=== PATIENT | male | born 1950 | race Caucasian/White ===

== ENCOUNTER 2018-11-14 11:20 | Inpatient (IN) | payer MEDICARE, OTHER ==
[~2018-11-14] VITALS: Ht 188 cm; Wt 120.7 kg
[2018-11-14] MEDS ORDERED: ipratropium/albuterol 3ml nebule NEB ONE (11:40)
[2018-11-14] MEDS ORDERED: furosemide 10 MG/1 ML 10ml inj IV ONE (11:40)
[2018-11-14 11:57] LABS: RED CELL DISTRIBUTION WIDTH 18.5 % (11.5-14.5)
[2018-11-14 11:59] LABS: HEMOGLOBIN 9.5 g/dl (14.0-17.9); MEAN CORPUSCULAR HEMOGLOBIN 21.5 PG (27.0-31.0); MEAN CORPUSCULAR HGB CONC 29.7 g/dL (33.0-36.5); MEAN CORPUSCULAR VOLUME 72.4 FL (78-98); MEAN PLATELET VOLUME 6.8 FL (7.4-10.4); PLATELET COUNT 166 X10'3 (140-440); RED BLOOD COUNT 4.42 X10'6 (4.70-6.10)
[2018-11-14 12:12] LABS: ALANINE AMINOTRANSFERASE 24 U/L (12-78); ALBUMIN 3.6 G/DL (3.4-5.0); ALBUMIN/GLOBULIN RATIO 1.2 (1.1-1.5); ALKALINE PHOSPHATASE 98 IU/L (46-116); ANION GAP 3 (8-16); ASPARTATE AMINO TRANSFERASE 24 U/L (10-37); BILIRUBIN,TOTAL 0.6 MG/DL (0.1-1.0); BLOOD UREA NITROGEN 22 MG/DL (7-18); BUN/CREATININE RATIO 11.1 (5.4-32.0); CALCIUM 8.9 MG/DL (8.5-10.1); CHLORIDE 99 MMOL/L (99-107); CREATININE 1.98 MG/DL (0.60-1.10); GLUCOSE 117 MG/DL (70-104); POTASSIUM 3.9 MMOL/L (3.5-5.1); SODIUM 135 MMOL/L (135-145); TOTAL CARBON DIOXIDE 32.9 MMOL/L (24-32); TOTAL PROTEIN 6.6 G/DL (6.4-8.2); eGFR 34 ML/MIN
[2018-11-14 12:28] LABS: WHITE BLOOD COUNT 66.2 X10'3 (4.5-11.0)
[2018-11-14 13:08] LABS: PLATELET ESTIMATE NORMAL; TOTAL CELLS COUNTED 100
[2018-11-14 13:09] LABS: ANISOCYTOSIS 2+; ELLIPTOCYTES FEW; HYPOCHROMASIA 1+; MICROCYTOSIS 1+; POLYCHROMASIA FEW
[2018-11-14] MEDS ORDERED: ALBU18HF2 INH (13:25)
[2018-11-14] MEDS ORDERED: HYDROcodone/acetaminophen 10/325mg tab PO ONE (13:25)
[2018-11-14] MEDS ORDERED: BUDE10.2 INH (13:26)
[2018-11-14] MEDS ORDERED: APIX2.5T PO (13:26)
[2018-11-14] MEDS ORDERED: DOCU100C41 PO (13:27)
[2018-11-14] MEDS ORDERED: CARV3.122 PO (13:27)
[2018-11-14] MEDS ORDERED: FERR324T PO (13:28)
[2018-11-14] MEDS ORDERED: FLUT16SP10 NAS (13:30)
[2018-11-14] MEDS ORDERED: FURO-149 PO (13:31)
[2018-11-14] MEDS ORDERED: GABA-532 PO (13:32)
[2018-11-14] MEDS ORDERED: IPRA30SP (13:32)
[2018-11-14] MEDS ORDERED: LACT1CAP65 PO (13:33)
[2018-11-14] MEDS ORDERED: LIDO35.4 TOP (13:35)
[2018-11-14] MEDS ORDERED: LISI-604 PO (13:36)
[2018-11-14] MEDS ORDERED: OMEP40CA37 PO (13:37)
[2018-11-14] MEDS ORDERED: POTA10TA21 PO (13:37)
[2018-11-14] MEDS ORDERED: QUET200T PO (13:38)
[2018-11-14] MEDS ORDERED: SODI56GE9 PO (13:40)
[2018-11-14 13:47] LABS: SMUDGE CELLS 2+
[2018-11-14] MEDS ORDERED: potassium CL 10mEq/100ml bag 100 ML IV PRN (14:25)
[2018-11-14] MEDS ORDERED: magnesium 2GM in 50ml NS 50 ML IV PRN (14:25)
[2018-11-14] MEDS ORDERED: potassium Cl 40MEQ/NS 500ml 500 ML IV PRN (14:25)
[2018-11-14] MEDS ORDERED: magnesium 4gm in 100ml NS 100 ML IV PRN (14:25)
[2018-11-14] MEDS ORDERED: acetaminophen 325mg tablet PO PRN (14:25)
[2018-11-14] MEDS ORDERED: magnesium Cl slow-release 64mg tablet PO PRN (14:25)
[2018-11-14] MEDS ORDERED: potassium Cl 20 mEq SR tablet PO PRN (14:25)
--- NOTE | 2018-11-14 15:35 | NUR ---
RELIEVING RN FOR BREAK, PT IS UP AT BEDSIDE TO USE COMMODE
[2018-11-14] MEDS ORDERED: docusate sod 100mg capsule PO PRN (15:45)
[2018-11-14] MEDS ORDERED: ipratropium 0.03% 30ML nasal spray NS PRN (15:45)
[2018-11-14 16:38] VITALS: BP 104/57
[2018-11-14] MEDS ORDERED: albuterol 2.5 MG/3 ML nebule NEB PRN (16:40)
[2018-11-14] MEDS: lisinopril 5mg tablet PO SCH (16:54)
--- NOTE | 2018-11-14 18:23 | NUR ---
Problems reprioritized. Patient report given, questions answered & plan of care reviewed with Maricarmen GOMEZ.
--- NOTE | 2018-11-14 18:30 | NUR ---
Patient in room [facility]. I have received report from PATRICIA Mckeon and had the opportunity to ask questions and assume patient care. Addendum: 11/15/18 at 0102 by Jill Cobb RN Amended: Links added.
[2018-11-14 18:45] VITALS: BP 111/64
[2018-11-14 19:15] VITALS: BP 99/61
[2018-11-14] MEDS ORDERED: HYDROcodone/acetaminophen 5mg/325mg tablet PO PRN (19:50)
[2018-11-14] MEDS ORDERED: ferrous gluconate 324mg tablet PO SCH (20:00)
[2018-11-14] MEDS ORDERED: non-formulary drug (Budesonide/Formoterol Fumarate (Symbicort 160-4.5 Mcg Inhaler) 2 PUFFS INH SCH (20:00)
[2018-11-14] MEDS: carVEDilol 3.125mg tablet PO SCH (20:00)
[2018-11-14 20:07] LABS: POTASSIUM 3.8 MMOL/L (3.5-5.1)
[2018-11-14] MEDS: apixaban 2.5mg tablet PO SCH (20:30)
[2018-11-14 20:33] VITALS: BP 98/50
[2018-11-14] MEDS: budesonide 0.5mg/2ml UD nebule IH SCH (20:49)
[2018-11-14] MEDS: albuterol 2.5 MG/3 ML nebule NEB SCH (20:50)
[2018-11-14] MEDS: gabapentin 300mg capsule PO SCH (21:34)
[2018-11-14] MEDS: quetiapine 100mg tablet PO SCH (21:34)
[2018-11-15] VITALS (20 sets, daily range): BP systolic 85–129; BP diastolic 42–104
[2018-11-15] MEDS: HYDROcodone/acetaminophen 5mg/325mg tablet PO PRN ×3 (03:40→19:38)
[2018-11-15 05:02] LABS: ALBUMIN 3.4 G/DL (3.4-5.0); ANION GAP 0 (8-16); BLOOD UREA NITROGEN 23 MG/DL (7-18); BUN/CREATININE RATIO 12.2 (5.4-32.0); CALCIUM 8.6 MG/DL (8.5-10.1); CHLORIDE 99 MMOL/L (99-107); CREATININE 1.89 MG/DL (0.60-1.10); GLUCOSE 89 MG/DL (70-104); POTASSIUM 3.5 MMOL/L (3.5-5.1); SODIUM 134 MMOL/L (135-145); TOTAL CARBON DIOXIDE 34.6 MMOL/L (24-32); eGFR 36 ML/MIN
[2018-11-15 05:12] LABS: HEMOGLOBIN 8.8 g/dl (14.0-17.9); MEAN CORPUSCULAR HEMOGLOBIN 21.5 PG (27.0-31.0)
[2018-11-15 05:14] LABS: MEAN CORPUSCULAR HGB CONC 29.4 g/dL (33.0-36.5); MEAN PLATELET VOLUME 7.3 FL (7.4-10.4); PLATELET COUNT 133 X10'3 (140-440); RED BLOOD COUNT 4.11 X10'6 (4.70-6.10); RED CELL DISTRIBUTION WIDTH 18.7 % (11.5-14.5)
[2018-11-15 05:18] LABS: WHITE BLOOD COUNT 54.4 X10'3 (4.5-11.0)
[2018-11-15 05:50] LABS: TOTAL CELLS COUNTED 100
[2018-11-15 05:51] LABS: ANISOCYTOSIS 2+; PLATELET ESTIMATE DECREASED; POLYCHROMASIA 1+
[2018-11-15 05:52] LABS: ELLIPTOCYTES FEW; HYPOCHROMASIA 1+; MICROCYTOSIS 1+; SMUDGE CELLS 3+; STOMATOCYTES 1+
--- NOTE | 2018-11-15 06:30 | NUR ---
Problems reprioritized. Patient report given, questions answered & plan of care reviewed with PATRICIA CELIS. Addendum: 11/15/18 at 0650 by Jill Cobb RN Amended: Links added.
--- NOTE | 2018-11-15 06:30 | NUR ---
Patient in room Surgical 352-A. I have received report from PATRICIA Hernadez and had the opportunity to ask questions and assume patient care.
[2018-11-15] MEDS: K and/or MAG REPLACEMENT MC SCH (08:00)
[2018-11-15] MEDS ORDERED: POTASSIUM CITRATE 10 MEQ PO SCH ×2 (08:00)
[2018-11-15] MEDS: lisinopril 5mg tablet PO SCH (08:00)
[2018-11-15] MEDS: carVEDilol 3.125mg tablet PO SCH ×2 (08:00→19:35)
[2018-11-15] MEDS: apixaban 2.5mg tablet PO SCH ×2 (08:22→19:36)
[2018-11-15] MEDS: ferrous gluconate 324mg tablet PO SCH ×2 (08:23→19:36)
[2018-11-15] MEDS: budesonide 0.5mg/2ml UD nebule IH SCH ×2 (09:00→19:11)
--- NOTE | 2018-11-15 10:30 | NUR ---
Per Dr. Kim, patient's K needs to be above 4.0. Orders received to replace pt per protocol if K less than 4.0. Pt's potassium 3.5 this am. 20 MeQ given per MD orders.
[2018-11-15] MEDS: potassium Cl 20 mEq SR tablet PO PRN ×3 (10:44→19:36)
--- NOTE | 2018-11-15 11:10 | NUR ---
Patient report given to PATRICIA Lopez in PCU S. Pt stable for transfer to PCU unit.
[2018-11-15] MEDS: albuterol 2.5 MG/3 ML nebule NEB SCH ×3 (11:21→19:11)
--- NOTE | 2018-11-15 12:00 | NUR ---
Patient in room PCU 3013. I have received report from Russell GOMEZ and had the opportunity to ask questions and assume patient care.
[2018-11-15] MEDS: DOBUTamine-DoBUTrex 500mg/D5W 250 ML IV SCH (12:10)
[2018-11-15] MEDS ORDERED: albuterol 2.5 MG/3 ML nebule NEB SCH (15:00)
--- NOTE | 2018-11-15 18:20 | NUR ---
Problems reprioritized. Patient report given, questions answered & plan of care reviewed with Monique GOMEZ.
[2018-11-15] MEDS: ondansetron/PF 4mg/2ml inj IV PRN (19:36)
[2018-11-15] MEDS: quetiapine 100mg tablet PO SCH (21:18)
[2018-11-15] MEDS: gabapentin 300mg capsule PO SCH (21:18)
[2018-11-16] VITALS (16 sets, daily range): BP systolic 75–119; BP diastolic 46–79
[2018-11-16] MEDS: ondansetron/PF 4mg/2ml inj IV PRN ×3 (04:24→18:23)
[2018-11-16] MEDS: HYDROcodone/acetaminophen 5mg/325mg tablet PO PRN ×4 (04:25→21:07)
[2018-11-16 05:47] LABS: ALBUMIN 3.2 G/DL (3.4-5.0); ANION GAP 2 (8-16); BLOOD UREA NITROGEN 17 MG/DL (7-18); BUN/CREATININE RATIO 11.6 (5.4-32.0); CALCIUM 8.3 MG/DL (8.5-10.1); CHLORIDE 103 MMOL/L (99-107); CREATININE 1.46 MG/DL (0.60-1.10); GLUCOSE 82 MG/DL (70-104); POTASSIUM 3.9 MMOL/L (3.5-5.1); SODIUM 137 MMOL/L (135-145); TOTAL CARBON DIOXIDE 31.7 MMOL/L (24-32); eGFR 48 ML/MIN
[2018-11-16 05:49] LABS: BASOPHILS # (AUTO) 0.1 X10'3 (0-0.2); EOSINOPHILS # (AUTO) 0.2 X10'3 (0-0.9); HEMOGLOBIN 8.1 g/dl (14.0-17.9); LYMPHOCYTES % (AUTO) 86.8 % (21-51)
[2018-11-16 05:51] LABS: BASOPHILS % (AUTO) 0.2 % (0-1); EOSINOPHILS % (AUTO) 0.5 % (0-6); HEMATOCRIT 27.8 % (42.0-52.0); LYMPHOCYTES # (AUTO) 32.9 X10'3 (1.1-4.8); MEAN CORPUSCULAR HEMOGLOBIN 21.3 PG (27.0-31.0); MEAN CORPUSCULAR HGB CONC 29.1 g/dL (33.0-36.5); MEAN CORPUSCULAR VOLUME 73.4 FL (78-98); MEAN PLATELET VOLUME 7.4 FL (7.4-10.4); MONOCYTES # (AUTO) 0.6 X10'3 (0-0.9); MONOCYTES % (AUTO) 1.5 % (2-12); NEUTROPHILS # (AUTO) 4.2 X10'3 (1.8-7.7); PLATELET COUNT 110 X10'3 (140-440); RED BLOOD COUNT 3.78 X10'6 (4.70-6.10)
[2018-11-16 05:54] LABS: WHITE BLOOD COUNT 37.9 X10'3 (4.5-11.0)
--- NOTE | 2018-11-16 06:12 | NUR ---
Patient in room PCU 3013. I have received report from Den GOMEZ and had the opportunity to ask questions and assume patient care.
[2018-11-16 06:41] LABS: SMUDGE CELLS 3+; TOTAL CELLS COUNTED 100
[2018-11-16 06:42] LABS: ANISOCYTOSIS 2+; ELLIPTOCYTES 1+; HYPOCHROMASIA 1+; MICROCYTOSIS 1+; PLATELET ESTIMATE DECREASED; POLYCHROMASIA 1+
[2018-11-16] MEDS: budesonide 0.5mg/2ml UD nebule IH SCH ×2 (07:10→18:56)
[2018-11-16] MEDS: albuterol 2.5 MG/3 ML nebule NEB SCH ×4 (07:10→18:56)
[2018-11-16] MEDS: K and/or MAG REPLACEMENT MC SCH (08:00)
[2018-11-16] MEDS: carVEDilol 3.125mg tablet PO SCH ×2 (08:00→21:06)
--- NOTE | 2018-11-16 08:45 | NUR ---
Per Dr. Winn orders to keep potassium at 4.0 or higher. Pt's morning Potassium 3.9, beginning replacement.
--- NOTE | 2018-11-16 08:45 | NUR ---
Per Dr. Leavitt orders. Hold morning Coreg 3.125mg, and give morning lisinopril 5mg
[2018-11-16] MEDS: ferrous gluconate 324mg tablet PO SCH ×2 (08:48→21:06)
[2018-11-16] MEDS: lisinopril 5mg tablet PO SCH (08:48)
[2018-11-16] MEDS: apixaban 2.5mg tablet PO SCH ×2 (08:48→21:07)
[2018-11-16] MEDS: potassium Cl 20 mEq SR tablet PO PRN (08:49)
--- NOTE | 2018-11-16 09:06 | NUR ---
PAGER ID: [phone] MESSAGE: RE: Nathan Hernandez, Room: [facility]. At 0900 Pt had 12 beat run of v-tach. -[facility] #[id number] Dr. Leavitt paged concerning Pts 12 beat run of V-tach
--- NOTE | 2018-11-16 09:30 | NUR ---
per Dr. Winn orders; -Lasix 20mg IV BID -Lasix 20mg IV once now -Potassium 20meq BID PO -Amiodarone 150mg IV Once -Mag 2Gm IV once. Orders entered.
[2018-11-16] MEDS: DOBUTamine-DoBUTrex 500mg/D5W 250 ML IV SCH (09:53)
[2018-11-16] MEDS ORDERED: furosemide 20 MG/2 ML vial IV ONE (10:35)
[2018-11-16] MEDS ORDERED: amiodarone 50MG/ML inj IV ONE (11:10)
[2018-11-16] MEDS ORDERED: amiodarone 150mg/dext, iso-os 100 ML IV ONE (11:40)
[2018-11-16] MEDS ORDERED: magnesium 2GM in 50ml NS 50 ML IV ONE (11:45)
--- NOTE | 2018-11-16 12:30 | NUR ---
Per Dr. Winn orders, keep magnesium above 2.0. Mag 2GM IV administered
[2018-11-16] MEDS: fluticasone nasal spray 16GM bottle NS PRN (13:14)
[2018-11-16] MEDS: potassium Cl 20 mEq SR tablet PO SCH (17:24)
--- NOTE | 2018-11-16 18:00 | NUR ---
Problems reprioritized. Patient report given, questions answered & plan of care reviewed with Den GOMEZ.
[2018-11-16] MEDS ORDERED: furosemide 20 MG/2 ML vial IV SCH (20:00)
[2018-11-16] MEDS: gabapentin 300mg capsule PO SCH (21:05)
[2018-11-16] MEDS: famotidine 20mg tablet PO SCH (21:05)
[2018-11-16] MEDS: quetiapine 100mg tablet PO SCH (21:06)
[2018-11-16] MEDS ORDERED: potassium CL 10mEq/100ml bag 100 ML IV PRN (22:30)
[2018-11-16] MEDS ORDERED: magnesium 4gm in 100ml NS 100 ML IV PRN (22:30)
[2018-11-16 22:35] LABS: BASOPHILS % (AUTO) 0 % (0-1); EOSINOPHILS # (AUTO) 0.3 X10'3 (0-0.9); EOSINOPHILS % (AUTO) 0.5 % (0-6); HEMATOCRIT 31.3 % (42.0-52.0); LYMPHOCYTES # (AUTO) 48.9 X10'3 (1.1-4.8); LYMPHOCYTES % (AUTO) 85.7 % (21-51); MEAN CORPUSCULAR HEMOGLOBIN 21.1 PG (27.0-31.0); MEAN CORPUSCULAR HGB CONC 28.7 g/dL (33.0-36.5); MEAN CORPUSCULAR VOLUME 73.5 FL (78-98); MONOCYTES # (AUTO) 1.1 X10'3 (0-0.9); NEUTROPHILS # (AUTO) 6.7 X10'3 (1.8-7.7); NEUTROPHILS % (AUTO) 11.8 % (42-75); PLATELET COUNT 141 X10'3 (140-440); RED BLOOD COUNT 4.26 X10'6 (4.70-6.10); RED CELL DISTRIBUTION WIDTH 19.1 % (11.5-14.5)
[2018-11-16 22:38] LABS: WHITE BLOOD COUNT 57.1 X10'3 (4.5-11.0)
[2018-11-16 22:49] LABS: ALBUMIN 3.4 G/DL (3.4-5.0); ANION GAP 0 (8-16); BLOOD UREA NITROGEN 18 MG/DL (7-18); BUN/CREATININE RATIO 10.5 (5.4-32.0); CALCIUM 8.6 MG/DL (8.5-10.1); CHLORIDE 97 MMOL/L (99-107); CREATININE 1.71 MG/DL (0.60-1.10); GLUCOSE 114 MG/DL (70-104); PHOSPHORUS 3.7 MG/DL (2.3-4.5); POTASSIUM 4.7 MMOL/L (3.5-5.1); SODIUM 131 MMOL/L (135-145); TOTAL CARBON DIOXIDE 33.9 MMOL/L (24-32); TROPONIN I < 0.04 NG/ML (0.0-0.05); eGFR 40 ML/MIN
[2018-11-16 22:55] LABS: TOTAL CELLS COUNTED 100
[2018-11-16 22:56] LABS: ANISOCYTOSIS 2+; ELLIPTOCYTES FEW; HYPOCHROMASIA 1+; MICROCYTOSIS 1+; PLATELET ESTIMATE NORMAL; POLYCHROMASIA 1+; SMUDGE CELLS 4+; STOMATOCYTES 1+
[2018-11-16 23:21] LABS: MAGNESIUM 2.5 MG/DL (1.5-2.4)
[2018-11-17] VITALS (15 sets, daily range): BP systolic 90–146; BP diastolic 38–89
[2018-11-17] MEDS: DOBUTamine-DoBUTrex 500mg/D5W 250 ML IV SCH ×2 (03:01→10:35)
[2018-11-17] MEDS: HYDROcodone/acetaminophen 5mg/325mg tablet PO PRN ×4 (03:02→20:22)
[2018-11-17 06:05] LABS: HEMOGLOBIN 8.9 g/dl (14.0-17.9); MEAN CORPUSCULAR VOLUME 74.1 FL (78-98); PLATELET COUNT 133 X10'3 (140-440)
--- NOTE | 2018-11-17 06:07 | NUR ---
Patient in room PCU 3010. I have received report from Den GOMEZ and had the opportunity to ask questions and assume patient care.
[2018-11-17 06:09] LABS: BASOPHILS % (AUTO) 0.1 % (0-1); EOSINOPHILS # (AUTO) 0.3 X10'3 (0-0.9); EOSINOPHILS % (AUTO) 0.5 % (0-6); HEMATOCRIT 30.7 % (42.0-52.0); LYMPHOCYTES # (AUTO) 48.7 X10'3 (1.1-4.8); LYMPHOCYTES % (AUTO) 87.3 % (21-51); MEAN CORPUSCULAR HEMOGLOBIN 21.5 PG (27.0-31.0); MEAN PLATELET VOLUME 7.5 FL (7.4-10.4); MONOCYTES # (AUTO) 0.9 X10'3 (0-0.9); MONOCYTES % (AUTO) 1.7 % (2-12); NEUTROPHILS # (AUTO) 5.8 X10'3 (1.8-7.7); NEUTROPHILS % (AUTO) 10.4 % (42-75); RED BLOOD COUNT 4.15 X10'6 (4.70-6.10); RED CELL DISTRIBUTION WIDTH 18.7 % (11.5-14.5)
[2018-11-17 06:13] LABS: ALBUMIN 3.3 G/DL (3.4-5.0); ANION GAP 1 (8-16); BLOOD UREA NITROGEN 18 MG/DL (7-18); BUN/CREATININE RATIO 10.1 (5.4-32.0); CALCIUM 8.9 MG/DL (8.5-10.1); CHLORIDE 98 MMOL/L (99-107); CREATININE 1.79 MG/DL (0.60-1.10); GLUCOSE 84 MG/DL (70-104); MAGNESIUM 2.4 MG/DL (1.5-2.4); POTASSIUM 4.9 MMOL/L (3.5-5.1); SODIUM 133 MMOL/L (135-145); TOTAL CARBON DIOXIDE 33.7 MMOL/L (24-32); eGFR 38 ML/MIN
[2018-11-17 06:15] LABS: WHITE BLOOD COUNT 55.8 X10'3 (4.5-11.0)
[2018-11-17 07:18] LABS: ANISOCYTOSIS 2+; HYPOCHROMASIA 1+; MICROCYTOSIS 1+; PLATELET ESTIMATE DECREASED; POLYCHROMASIA 1+; STOMATOCYTES 1+; TOTAL CELLS COUNTED 100
[2018-11-17 07:19] LABS: SMUDGE CELLS 4+
[2018-11-17] MEDS: budesonide 0.5mg/2ml UD nebule IH SCH ×2 (07:30→19:29)
[2018-11-17] MEDS: albuterol 2.5 MG/3 ML nebule NEB SCH ×4 (07:30→19:29)
[2018-11-17] MEDS: lisinopril 5mg tablet PO SCH (08:00)
[2018-11-17] MEDS: K and/or MAG REPLACEMENT MC SCH (08:00)
[2018-11-17] MEDS ORDERED: amiodarone 200mg tablet PO ONE (09:05)
--- NOTE | 2018-11-17 09:15 | NUR ---
Per Dr. Lara orders; hold morning dose of lisinopril 5mg
[2018-11-17] MEDS: potassium Cl 20 mEq SR tablet PO SCH ×2 (09:18→17:25)
[2018-11-17] MEDS: apixaban 2.5mg tablet PO SCH ×2 (09:18→20:22)
[2018-11-17] MEDS: carVEDilol 3.125mg tablet PO SCH ×2 (09:18→20:22)
[2018-11-17 10:31] LABS: ALANINE AMINOTRANSFERASE 20 U/L (12-78); ALBUMIN 3.5 G/DL (3.4-5.0); ALBUMIN/GLOBULIN RATIO 1.2 (1.1-1.5); ALKALINE PHOSPHATASE 84 IU/L (46-116); ASPARTATE AMINO TRANSFERASE 18 U/L (10-37); BILIRUBIN,DIRECT 0.1 MG/DL (0-0.3); BILIRUBIN,TOTAL 0.5 MG/DL (0.1-1.0); TOTAL PROTEIN 6.4 G/DL (6.4-8.2)
[2018-11-17] MEDS: ferrous gluconate 324mg tablet PO SCH ×2 (10:34→20:22)
[2018-11-17] MEDS ORDERED: LIDOcaine 2% 10ml TOPICAL JELLY (Urojet) MM ONE (11:35)
--- NOTE | 2018-11-17 12:17 | NUR ---
Size 16 polish pruitt catheter placed in Pt. Pt tolerated well, 10CC of water filled in balloon tip. 350ml of urine out with initial placement.
[2018-11-17] MEDS: furosemide inj 100 MG in normal saline 100ml IV soln 90 ML IV SCH ×2 (12:31→23:54)
--- NOTE | 2018-11-17 13:09 | NUR ---
PAGER ID: [phone] MESSAGE: RE; Nathan Hernandez, Room: 3010. Pt's last three BP's have been 94/50, 85/58 and 94/50. Pt is asymptomatic. Increase Dobutamine to 5mcg? -John [facility] #[id number] -Dr. Lara paged concerning Pts BP's
--- NOTE | 2018-11-17 15:00 | NUR ---
Per Dr. Lara's orders; hold all night BP meds for Pt
[2018-11-17] MEDS: ondansetron/PF 4mg/2ml inj IV PRN (16:16)
--- NOTE | 2018-11-17 18:00 | NUR ---
Patient in room PCU 3010. I have received report from John GOMEZ and had the opportunity to ask questions and assume patient care.
--- NOTE | 2018-11-17 18:00 | NUR ---
Problems reprioritized. Patient report given, questions answered & plan of care reviewed with Den GOMEZ.
[2018-11-17] MEDS: gabapentin 300mg capsule PO SCH (20:21)
[2018-11-17] MEDS: amiodarone 200mg tablet PO SCH (20:21)
[2018-11-17] MEDS: famotidine 20mg tablet PO SCH (20:22)
[2018-11-17] MEDS: quetiapine 100mg tablet PO SCH (20:22)
[2018-11-18] VITALS (13 sets, daily range): BP systolic 87–119; BP diastolic 45–89
[2018-11-18] MEDS: HYDROcodone/acetaminophen 5mg/325mg tablet PO PRN ×4 (02:30→19:06)
[2018-11-18 05:31] LABS: BASOPHILS % (AUTO) 0.1 % (0-1); EOSINOPHILS # (AUTO) 0.3 X10'3 (0-0.9); EOSINOPHILS % (AUTO) 0.5 % (0-6); HEMATOCRIT 31.4 % (42.0-52.0); HEMOGLOBIN 9.2 g/dl (14.0-17.9); LYMPHOCYTES # (AUTO) 51.8 X10'3 (1.1-4.8); MEAN CORPUSCULAR HEMOGLOBIN 21.8 PG (27.0-31.0); MEAN CORPUSCULAR HGB CONC 29.3 g/dL (33.0-36.5); MEAN CORPUSCULAR VOLUME 74.3 FL (78-98); MEAN PLATELET VOLUME 7.4 FL (7.4-10.4); MONOCYTES # (AUTO) 0.9 X10'3 (0-0.9); MONOCYTES % (AUTO) 1.6 % (2-12); NEUTROPHILS # (AUTO) 4.5 X10'3 (1.8-7.7); NEUTROPHILS % (AUTO) 7.8 % (42-75); PLATELET COUNT 122 X10'3 (140-440); RED BLOOD COUNT 4.23 X10'6 (4.70-6.10); RED CELL DISTRIBUTION WIDTH 18.6 % (11.5-14.5)
[2018-11-18 05:34] LABS: WHITE BLOOD COUNT 57.5 X10'3 (4.5-11.0)
[2018-11-18 05:44] LABS: ALBUMIN 3.4 G/DL (3.4-5.0); ANION GAP 4 (8-16); BLOOD UREA NITROGEN 19 MG/DL (7-18); BUN/CREATININE RATIO 11.7 (5.4-32.0); CALCIUM 8.1 MG/DL (8.5-10.1); CHLORIDE 96 MMOL/L (99-107); CREATININE 1.63 MG/DL (0.60-1.10); GLUCOSE 86 MG/DL (70-104); MAGNESIUM 1.9 MG/DL (1.5-2.4); POTASSIUM 4.1 MMOL/L (3.5-5.1); SODIUM 134 MMOL/L (135-145); TOTAL CARBON DIOXIDE 34.1 MMOL/L (24-32); eGFR 42 ML/MIN
[2018-11-18 05:57] LABS: ANISOCYTOSIS 2+; HYPOCHROMASIA 1+; MICROCYTOSIS 1+; PLATELET ESTIMATE DECREASED; POLYCHROMASIA 1+; SMUDGE CELLS 4+; TOTAL CELLS COUNTED 100
--- NOTE | 2018-11-18 06:00 | NUR ---
Patient in room PCU 3010. I have received report from Den GOMEZ and had the opportunity to ask questions and assume patient care.
[2018-11-18] MEDS: budesonide 0.5mg/2ml UD nebule IH SCH ×2 (06:59→20:03)
[2018-11-18] MEDS: albuterol 2.5 MG/3 ML nebule NEB SCH ×4 (06:59→20:03)
--- NOTE | 2018-11-18 08:00 | NUR ---
Page to Dr Lara re: Room 3010 Nathan Hernandez mg 1.9, Lasix in 1 IV and Dobutamine in other not compatible. Can I get PO mg order? Cathy [phone]
[2018-11-18] MEDS: furosemide inj 100 MG in normal saline 100ml IV soln 90 ML IV SCH ×2 (08:07→19:09)
[2018-11-18] MEDS: apixaban 2.5mg tablet PO SCH ×2 (08:10→21:38)
[2018-11-18] MEDS: amiodarone 200mg tablet PO SCH ×2 (08:10→21:37)
[2018-11-18] MEDS: potassium Cl 20 mEq SR tablet PO SCH ×2 (08:10→17:44)
[2018-11-18] MEDS: lisinopril 5mg tablet PO SCH (08:12)
[2018-11-18] MEDS: carVEDilol 3.125mg tablet PO SCH ×2 (08:12→21:41)
[2018-11-18] MEDS: ferrous gluconate 324mg tablet PO SCH ×2 (08:24→21:38)
--- NOTE | 2018-11-18 10:49 | NUR ---
Room 3020 [facility] 6 beat run of V-tach, asymptomatic Cathy [phone]
[2018-11-18] MEDS: DOBUTamine-DoBUTrex 500mg/D5W 250 ML IV SCH (10:59)
[2018-11-18] MEDS ORDERED: magnesium 2GM in 50ml NS 50 ML IV PRN (13:40)
[2018-11-18] MEDS ORDERED: magnesium 2GM in 50ml NS 50 ML IV ONE (13:40)
[2018-11-18] MEDS: K and/or MAG REPLACEMENT MC SCH (14:00)
[2018-11-18] MEDS: ondansetron/PF 4mg/2ml inj IV PRN (17:36)
[2018-11-18] MEDS: magnesium oxide 400mg tablet PO SCH (17:45)
--- NOTE | 2018-11-18 18:45 | NUR ---
Patient in room PCU 3010. I have received report from Cathy and had the opportunity to ask questions and assume patient care.
[2018-11-18] MEDS: famotidine 20mg tablet PO SCH (21:36)
[2018-11-18] MEDS: gabapentin 300mg capsule PO SCH (21:37)
[2018-11-18] MEDS: fluticasone nasal spray 16GM bottle NS PRN (21:39)
[2018-11-18] MEDS: quetiapine 100mg tablet PO SCH (21:39)
--- NOTE | 2018-11-18 23:13 | NUR ---
Had to waste slow mag pills. I pulled it at scheduled time at 0000 and was last given 5 hours ago and it's a Q8 medication.
[2018-11-19] VITALS (11 sets, daily range): BP systolic 90–120; BP diastolic 55–76
[2018-11-19] MEDS: magnesium oxide 400mg tablet PO SCH ×2 (01:46→07:28)
[2018-11-19] MEDS: HYDROcodone/acetaminophen 5mg/325mg tablet PO PRN ×3 (05:02→19:01)
[2018-11-19] MEDS: furosemide inj 100 MG in normal saline 100ml IV soln 90 ML IV SCH ×2 (05:38→14:02)
[2018-11-19 05:54] LABS: BASOPHILS # (AUTO) 0.1 X10'3 (0-0.2); BASOPHILS % (AUTO) 0.1 % (0-1); EOSINOPHILS # (AUTO) 0.3 X10'3 (0-0.9)
[2018-11-19 05:56] LABS: EOSINOPHILS % (AUTO) 0.5 % (0-6); HEMATOCRIT 30.1 % (42.0-52.0); HEMOGLOBIN 8.9 g/dl (14.0-17.9); LYMPHOCYTES # (AUTO) 46.8 X10'3 (1.1-4.8); LYMPHOCYTES % (AUTO) 89.3 % (21-51); MEAN CORPUSCULAR HEMOGLOBIN 21.9 PG (27.0-31.0); MEAN CORPUSCULAR HGB CONC 29.7 g/dL (33.0-36.5); MEAN CORPUSCULAR VOLUME 73.5 FL (78-98); MEAN PLATELET VOLUME 7.3 FL (7.4-10.4); MONOCYTES # (AUTO) 0.7 X10'3 (0-0.9); MONOCYTES % (AUTO) 1.3 % (2-12); NEUTROPHILS # (AUTO) 4.6 X10'3 (1.8-7.7); NEUTROPHILS % (AUTO) 8.8 % (42-75); PLATELET COUNT 120 X10'3 (140-440); RED BLOOD COUNT 4.09 X10'6 (4.70-6.10); RED CELL DISTRIBUTION WIDTH 18.8 % (11.5-14.5)
--- NOTE | 2018-11-19 06:05 | NUR ---
Patient in room PCU 3010. I have received report from Laurie GOMEZ and had the opportunity to ask questions and assume patient care.
[2018-11-19 06:13] LABS: WHITE BLOOD COUNT 52.5 X10'3 (4.5-11.0)
--- NOTE | 2018-11-19 06:17 | NUR ---
Problems reprioritized. Patient report given, questions answered & plan of care reviewed with Marcel GOMEZ.
[2018-11-19 06:18] LABS: ALBUMIN 3.3 G/DL (3.4-5.0); ANION GAP 4 (8-16); BLOOD UREA NITROGEN 20 MG/DL (7-18); BUN/CREATININE RATIO 11.6 (5.4-32.0); CALCIUM 7.9 MG/DL (8.5-10.1); CHLORIDE 94 MMOL/L (99-107); CREATININE 1.72 MG/DL (0.60-1.10); GLUCOSE 120 MG/DL (70-104); MAGNESIUM 2.1 MG/DL (1.5-2.4); POTASSIUM 3.9 MMOL/L (3.5-5.1); SODIUM 132 MMOL/L (135-145); TOTAL CARBON DIOXIDE 33.7 MMOL/L (24-32); eGFR 40 ML/MIN
[2018-11-19 07:06] LABS: SMUDGE CELLS 4+
[2018-11-19 07:17] LABS: TOTAL CELLS COUNTED 100
[2018-11-19 07:18] LABS: ANISOCYTOSIS 2+; HYPOCHROMASIA 1+; MICROCYTOSIS 1+; PLATELET ESTIMATE DECREASED
[2018-11-19] MEDS: apixaban 2.5mg tablet PO SCH ×2 (07:27→20:54)
[2018-11-19] MEDS: amiodarone 200mg tablet PO SCH ×2 (07:28→20:54)
[2018-11-19] MEDS: lisinopril 5mg tablet PO SCH (07:28)
[2018-11-19] MEDS: ondansetron/PF 4mg/2ml inj IV PRN ×2 (07:31→19:01)
[2018-11-19] MEDS: ferrous gluconate 324mg tablet PO SCH ×2 (07:37→20:54)
[2018-11-19] MEDS: K and/or MAG REPLACEMENT MC SCH (07:37)
[2018-11-19] MEDS: carVEDilol 3.125mg tablet PO SCH ×2 (07:37→20:00)
[2018-11-19] MEDS: albuterol 2.5 MG/3 ML nebule NEB SCH ×4 (08:16→20:01)
[2018-11-19] MEDS: budesonide 0.5mg/2ml UD nebule IH SCH ×2 (08:18→19:59)
[2018-11-19] MEDS: potassium Cl 20 mEq SR tablet PO SCH ×2 (08:30→17:00)
[2018-11-19] MEDS ORDERED: potassium Cl 20 mEq SR tablet PO STA (08:42)
[2018-11-19] MEDS: DOBUTamine-DoBUTrex 500mg/D5W 250 ML IV SCH (10:03)
--- NOTE | 2018-11-19 12:02 | NUR ---
Initial: Patient eating well, 75-100% average PO intake heart healthy diet. Admitted with CHF, anemia h/o CAD, CKD, COPD. There are no nutrition problems at this time. Will continue to follow. Recommend: 1. continue heart healthy diet 2. wt per rx Addendum: 11/19/18 at [address] Amended: Links added.
--- NOTE | 2018-11-19 12:06 | NUR ---
I have reviewed and agree with all medications administered and interventions performed by [employer] Student(AMY SOTELO)
--- NOTE | 2018-11-19 19:12 | NUR ---
Patient in room PCU 3010. I have received report from Marcel GOMEZ and had the opportunity to ask questions and assume patient care.
[2018-11-19] MEDS: quetiapine 100mg tablet PO SCH (20:54)
[2018-11-19] MEDS: famotidine 20mg tablet PO SCH (20:54)
[2018-11-19] MEDS: gabapentin 300mg capsule PO SCH (20:54)
[2018-11-20] VITALS (12 sets, daily range): BP systolic 94–119; BP diastolic 56–74
[2018-11-20] MEDS: furosemide inj 100 MG in normal saline 100ml IV soln 90 ML IV SCH ×3 (00:42→21:55)
[2018-11-20 05:41] LABS: ALBUMIN 3.2 G/DL (3.4-5.0); ANION GAP 4 (8-16); BLOOD UREA NITROGEN 22 MG/DL (7-18); BUN/CREATININE RATIO 11.2 (5.4-32.0); CHLORIDE 95 MMOL/L (99-107); CREATININE 1.96 MG/DL (0.60-1.10); GLUCOSE 86 MG/DL (70-104); MAGNESIUM 2.2 MG/DL (1.5-2.4); POTASSIUM 4.7 MMOL/L (3.5-5.1); SODIUM 134 MMOL/L (135-145); TOTAL CARBON DIOXIDE 34.9 MMOL/L (24-32); eGFR 34 ML/MIN
--- NOTE | 2018-11-20 06:19 | NUR ---
Problems reprioritized. Patient report given, questions answered & plan of care reviewed with Emmy GOMEZ.
--- NOTE | 2018-11-20 06:30 | NUR ---
Patient in room PCU 3010. I have received report from PATRICIA Schneider and had the opportunity to ask questions and assume patient care.
[2018-11-20] MEDS: albuterol 2.5 MG/3 ML nebule NEB SCH ×4 (07:14→19:53)
[2018-11-20] MEDS: budesonide 0.5mg/2ml UD nebule IH SCH ×2 (07:14→19:52)
[2018-11-20] MEDS: ondansetron/PF 4mg/2ml inj IV PRN ×2 (07:34→16:27)
[2018-11-20] MEDS: amiodarone 200mg tablet PO SCH ×2 (07:40→20:32)
[2018-11-20] MEDS: ferrous gluconate 324mg tablet PO SCH ×2 (07:40→20:31)
[2018-11-20] MEDS: potassium Cl 20 mEq SR tablet PO SCH ×2 (07:40→17:27)
[2018-11-20] MEDS: apixaban 2.5mg tablet PO SCH ×2 (07:40→20:31)
[2018-11-20] MEDS: HYDROcodone/acetaminophen 5mg/325mg tablet PO PRN ×3 (07:47→20:50)
[2018-11-20] MEDS: K and/or MAG REPLACEMENT MC SCH (08:00)
[2018-11-20] MEDS: carVEDilol 3.125mg tablet PO SCH ×2 (09:03→20:31)
--- NOTE | 2018-11-20 09:13 | NUR ---
I have reviewed and agree with all medications administered and interventions performed by [facility] Student Evi Mathews Addendum: 11/20/18 at 0913 by John Vargas RT Amended: Links added.
[2018-11-20] MEDS: fluticasone nasal spray 16GM bottle NS PRN (10:17)
[2018-11-20] MEDS: lisinopril 5mg tablet PO SCH (10:21)
--- NOTE | 2018-11-20 17:36 | NUR ---
VS stable throughout the day. Gave pts Coreg and Lisinopril 1hr apart this AM and SBP remained >100. [place] administered x2 for chronic pain DJD and OA with positive result. Zofran administered x2 for intermittent nausea with positive result. Good urine output via pruitt. Pt remains on Lasix gtt @10 ml/hr. Walked around the unit with nursing staff x2 this shift. Goal for pt to walk 3-4x/day per Dr. Lara. Pt ambulated well without assistance. Plan for possible d/c tomorrow per .
--- NOTE | 2018-11-20 18:22 | NUR ---
Patient in room PCU 3010. I have received report from Emmy GOMEZ and had the opportunity to ask questions and assume patient care.
[2018-11-20] MEDS: famotidine 20mg tablet PO SCH (20:31)
[2018-11-20] MEDS: quetiapine 100mg tablet PO SCH (20:32)
[2018-11-20] MEDS: gabapentin 300mg capsule PO SCH (20:32)
[2018-11-21] VITALS: BP 92/59
[2018-11-21 02:01] VITALS: BP 99/63
[2018-11-21] MEDS: HYDROcodone/acetaminophen 5mg/325mg tablet PO PRN (02:48)
[2018-11-21 04:00] VITALS: BP 93/61
--- NOTE | 2018-11-21 06:10 | NUR ---
Patient in room PCU 3010. I have received report from Jennie GOMEZ and had the opportunity to ask questions and assume patient care.
--- NOTE | 2018-11-21 06:19 | NUR ---
Problems reprioritized. Patient report given, questions answered & plan of care reviewed with Marcel GOMEZ.
[2018-11-21 06:26] LABS: ALBUMIN 3.3 G/DL (3.4-5.0); ANION GAP 3 (8-16); BLOOD UREA NITROGEN 31 MG/DL (7-18); BUN/CREATININE RATIO 14.5 (5.4-32.0); CALCIUM 10.3 MG/DL (8.5-10.1); CHLORIDE 95 MMOL/L (99-107); CREATININE 2.14 MG/DL (0.60-1.10); GLUCOSE 119 MG/DL (70-104); MAGNESIUM 2.2 MG/DL (1.5-2.4); SODIUM 133 MMOL/L (135-145); TOTAL CARBON DIOXIDE 35.1 MMOL/L (24-32); eGFR 31 ML/MIN
[2018-11-21 06:42] VITALS: BP 104/63
[2018-11-21] MEDS: budesonide 0.5mg/2ml UD nebule IH SCH (07:02)
[2018-11-21] MEDS: albuterol 2.5 MG/3 ML nebule NEB SCH ×2 (07:02→11:09)
[2018-11-21] MEDS: carVEDilol 3.125mg tablet PO SCH (07:12)
[2018-11-21] MEDS: ondansetron/PF 4mg/2ml inj IV PRN (07:12)
[2018-11-21] MEDS: ferrous gluconate 324mg tablet PO SCH (07:12)
[2018-11-21] MEDS: amiodarone 200mg tablet PO SCH (07:12)
[2018-11-21] MEDS: lisinopril 5mg tablet PO SCH (07:13)
[2018-11-21] MEDS: furosemide inj 100 MG in normal saline 100ml IV soln 90 ML IV SCH (07:13)
[2018-11-21] MEDS: apixaban 2.5mg tablet PO SCH (08:00)
[2018-11-21] MEDS: K and/or MAG REPLACEMENT MC SCH (08:00)
[2018-11-21] MEDS: potassium Cl 20 mEq SR tablet PO SCH (09:07)
[2018-11-21] MEDS ORDERED: AMIO200T40 PO (10:04)
[2018-11-21] MEDS ORDERED: FURO-150 PO (10:04)
[2018-11-21 11:00] VITALS: BP 103/68
--- NOTE | 2018-11-21 11:03 | NUR ---
Paged Dr. Lara PAGER ID: [phone] MESSAGE: Marcel GOMEZ [phone] Nathan Hernandez: Pt needs hand-written prescriptions to take to [place] [facility]. Thank you.
--- NOTE | 2018-11-21 13:00 | NUR ---
Patient Discharged Home. Patient discharged home via private vehicle as the patient was picked up by his . IV catheters removed prior to discharge, catheters intact. Tele leads removed from patient prior to discharge. New prescriptions provided to patient and patient stated he would go to the [place] to have the prescriptions filled. Discharge instructions provided to patient and discussed with patient via RN. All belongings sent home with patient. All questions and concerns addressed with patient prior to discharge. Patient escorted out of facility in wheelchair via nurse's aide.
== END 2018-11-21 12:55 | disposition home or self-care (01) | DRG 840 ==
LOC: ER 11:21 → SUR 3N 15:59 → CMPBEDREQ 22:08 → SUR 3N 11-15 02:08 → PCU 3S 11-15 11:47
PROVIDERS: ADMIT Internal Medicine; ATTEND Internal Medicine
DX: C85.95 Non-Hodgkin lymphoma, unspecified, lymph nodes of inguinal region and lower limb (principal); I50.23 Acute on chronic systolic (congestive) heart failure; I13.0 Hypertensive heart and chronic kidney disease with heart failure and stage 1 through stage 4 chronic kidney disease, or unspecified chronic kidney disease; N17.9 Acute kidney failure, unspecified; J96.10 Chronic respiratory failure, unspecified whether with hypoxia or hypercapnia; I47.2 Ventricular tachycardia; I43 Cardiomyopathy in diseases classified elsewhere; I27.20 Pulmonary hypertension, unspecified; I08.1 Rheumatic disorders of both mitral and tricuspid valves; D64.9 Anemia, unspecified; R31.9 Hematuria, unspecified; I25.10 Atherosclerotic heart disease of native coronary artery without angina pectoris; I48.0 Paroxysmal atrial fibrillation; K57.30 Diverticulosis of large intestine without perforation or abscess without bleeding; N18.9 Chronic kidney disease, unspecified; N28.1 Cyst of kidney, acquired; E87.6 Hypokalemia; J44.9 Chronic obstructive pulmonary disease, unspecified; R16.1 Splenomegaly, not elsewhere classified; R59.0 Localized enlarged lymph nodes; K21.9 Gastro-esophageal reflux disease without esophagitis; M19.90 Unspecified osteoarthritis, unspecified site; R91.8 Other nonspecific abnormal finding of lung field; Z79.899 Other long term (current) drug therapy; Z87.891 Personal history of nicotine dependence; Z90.49 Acquired absence of other specified parts of digestive tract; Z79.01 Long term (current) use of anticoagulants; Z85.6 Personal history of leukemia; Z92.21 Personal history of antineoplastic chemotherapy; Z99.81 Dependence on supplemental oxygen
CPT/HCPCS: 36415; 71045; 74176; 80048; 80053; 80076; 83605; 83735; 83880; 84100; 84132; 84484; 85025; 85610; 87081; 93005; 93306; 94640; 94760; 96374; 97116; 97161; 99285; G0378; J0282; J1250; J1940; J2405; J3475; J7626